=== PATIENT | female | born 1960 ===

== ENCOUNTER 2018-03-02 21:11 | Emergency (ER) | payer OTHER ==
[~2018-03-02] VITALS: Ht 154.9 cm; Wt 63.5 kg
[~2018-03-02 21:11] MED LIST: PERCOCET 5/3251 TAB PO; RECTICARE30 GM TP
[2018-03-03] MEDS ORDERED: PROTONIX40 MG PO (08:53)
[2018-03-03] MEDS ORDERED: METRONIDAZOLE500 MG PO (08:53)
[2018-03-03] MEDS ORDERED: CIPRO500 MG PO (08:53)
[2018-03-03] MEDS ORDERED: INTESTINEX680 M1 PO (08:53)
== END 2018-03-03 09:21 | disposition home or self-care (01) ==
LOC: ER 21:11
DX: K57.32 Diverticulitis of large intestine without perforation or abscess without bleeding (principal); K40.90 Unilateral inguinal hernia, without obstruction or gangrene, not specified as recurrent; R10.31 Right lower quadrant pain

== ENCOUNTER 2021-02-12 09:50 | Day surgery (SDC) | payer OTHER ==
[~2021-02-12 09:50] MED LIST changes: +CIPRO500 MG PO; +INTESTINEX680 M1 PO; +METRONIDAZOLE500 MG PO; +PROTONIX40 MG PO
== END 2021-02-12 14:00 | disposition home or self-care (01) ==
LOC: AMB-ENDOS 09:50
PROVIDERS: ATTEND Surgery
DX: D12.2 Benign neoplasm of ascending colon (principal); K64.8 Other hemorrhoids; Z20.822 Contact with and (suspected) exposure to COVID-19